=== PATIENT | female | born 1940 | race Two or more races ===

== ENCOUNTER 2024-07-16 13:00 | Outpatient (RCR) | payer OTHER, SELFPAY | END 2024-08-06 23:59 | disposition home or self-care (01) | LOC: SCTC 13:00 | PROVIDERS: PCP Internal Medicine Pulmonary Disease; Referring Provider Nurse Practitioner Family; Visit Provider Nurse Practitioner Family | DX: D69.6 Thrombocytopenia, unspecified (principal); K76.0 Fatty (change of) liver, not elsewhere classified; K64.9 Unspecified hemorrhoids; K59.00 Constipation, unspecified | CPT/HCPCS: 99213; G0463 ==

== ENCOUNTER → 2024-08-14 | Outpatient (CLI) | payer OTHER, SELFPAY ==
--- NOTE | 2024-08-14 14:30 | XR_ITS ---
Examination: CT abdomen with intravenous contrast CT pelvis with intravenous contrast 2-D coronal reconstructions 2-D sagittal reconstructions Date and time of exam:August 14, 2024 1441 hours Comparison February 12, 2023 INDICATIONS: Diagnosis thrombocytopenia unspecified, constipation 4 months. CTDI: vol (mGy) 8.19 DLP: (mGycm) 162 Technique: Multiple axial sections of the abdomen and pelvis have been obtained. 64 slice high-resolution scanner used. 3 mm axial sections have been obtained, post intravenous injection 60 cc [id number] 2-D sagittal, coronal reconstructions obtained. Low dose protocols were performed. One or more of the following dose reduction techniques were used; automated exposure control, adjustment of the mA and/or KV according to patient size, use of iterative reconstruction technique. Findings: Liver is irregular in contour with diffuse fatty infiltration Splenomegaly AP dimension 14 cm Absent gallbladder No pancreatic or mass 5 cm lateral left renal cyst Heavy abdominal aortic calcification no aneurysmal dilatation Minimal fluid distended small bowel loops No pericecal inflammatory change Colonic diverticulosis, no diverticulitis Atrophic uterus Urinary bladder intact Severe osteopenia with kyphoplasty T11 and T10 IMPRESSION: Cirrhosis Mild splenomegaly No abdominal or pelvic lymphadenopathy
== END | disposition home or self-care (01) ==
PROVIDERS: PCP Internal Medicine Pulmonary Disease; Referring Provider Nurse Practitioner Family; Visit Provider Nurse Practitioner Family
DX: K74.60 Unspecified cirrhosis of liver (principal); R16.1 Splenomegaly, not elsewhere classified
CPT/HCPCS: 74177; A4649; Q9967

== ENCOUNTER → 2024-08-19 | Outpatient (CLI) | payer OTHER, SELFPAY ==
--- NOTE | 2024-08-19 14:00 | XR_ITS ---
EXAMINATION: PET/CT FUSION SKULL TO THIGH EXAM DATE AND TIME: August 19, [address] abdomen pelvis August 14, 2024 INDICATIONS: Thrombocytopenia unspecified, staging prior to treatment CTDI:vol (mGy) 5.9 DLP: (mGycm) 541.9 PROCEDURE: 16 mCi FDG was administered intravenously To allow for distribution and uptake of radiotracer, the patient was allowed to rest quietly in a shielded room. Imaging was performed on an integrated 16-slice PET/CT scanner, with scanning from the skull base to the mid thigh. Serum blood glucose at the time of the injection was measured 91 mg/dL. CT scanning was performed without oral or intravenous contrast material. FINDINGS: Head and Neck: There is no pam hypermetabolism in the neck. The visualized portions of the brain are normal in appearance on CT. Chest: There is no pam hypermetabolism in the chest. There are no pulmonary nodules. Abdomen and Pelvis: There is no pam hypermetabolism in retroperitoneal or pelvic chains. The spleen is normal in size and FDG avidity. Musculoskeletal: Marrow uptake is within normal range. IMPRESSION: No chest, abdomen or pelvic lymphadenopathy
== END | disposition home or self-care (01) ==
PROVIDERS: PCP Internal Medicine Pulmonary Disease; Referring Provider Nurse Practitioner Family; Visit Provider Nurse Practitioner Family
DX: D69.6 Thrombocytopenia, unspecified (principal)
CPT/HCPCS: 78815; A9552

== ENCOUNTER 2024-08-25 12:59 | Outpatient (RCR) | payer OTHER, SELFPAY | END 2024-09-06 23:59 | disposition home or self-care (01) | LOC: SCTC 12:59 | PROVIDERS: PCP Internal Medicine Pulmonary Disease; Referring Provider Internal Medicine Pulmonary Disease; Visit Provider Nurse Practitioner Family | DX: D69.6 Thrombocytopenia, unspecified (principal); K74.60 Unspecified cirrhosis of liver; M81.0 Age-related osteoporosis without current pathological fracture; R63.4 Abnormal weight loss; Z68.27 Body mass index [BMI] 27.0-27.9, adult; Z79.83 Long term (current) use of bisphosphonates | CPT/HCPCS: 99212; G0463 ==

== ENCOUNTER 2024-10-08 11:29 | Outpatient (RCR) | payer OTHER, SELFPAY | END 2024-11-06 23:59 | disposition home or self-care (01) | LOC: SCTC 11:29 | PROVIDERS: PCP Internal Medicine Pulmonary Disease; Referring Provider Internal Medicine Pulmonary Disease; Visit Provider Nurse Practitioner Family | DX: D69.6 Thrombocytopenia, unspecified (principal); K74.60 Unspecified cirrhosis of liver; M81.0 Age-related osteoporosis without current pathological fracture; R16.1 Splenomegaly, not elsewhere classified; R63.4 Abnormal weight loss; Z68.28 Body mass index [BMI] 28.0-28.9, adult; I70.90 Unspecified atherosclerosis | CPT/HCPCS: 99212; G0463 ==

== ENCOUNTER → 2024-11-11 | Outpatient (CLI) | payer OTHER, SELFPAY ==
--- NOTE | 2024-11-11 10:30 | XR_ITS ---
Examination: Bone densitometry Date and time of exam:November 11, 2024 1045 hours INDICATIONS: Post menopausal, personal history osteoporosis, family history, sister osteoporosis Technique: Lumbar spine and hip total bone mineralization values of an calculated. Peak reference and age match control results have been displayed. Findings: Lumbar spine total bone mineralization is1.016 gm/cm2. This is 0.3 standard deviations below peak reference. This is 2.5 standard deviations above age-matched controls. Hip total bone mineralization is 0.808 gm/cm2 This is 1.1 standard deviations below peak reference. This is 1.0 standard deviations above age-matched controls Impression: There is normal mineralization based on lumbar spine measurements. There is osteoporosis based on hip measurements
== END | disposition home or self-care (01) ==
LOC: CDIM 10:21
PROVIDERS: Referring Provider Nurse Practitioner Family; Visit Provider Nurse Practitioner Family
DX: M81.0 Age-related osteoporosis without current pathological fracture (principal)
CPT/HCPCS: 77080

== ENCOUNTER 2025-01-12 13:08 | Outpatient (RCR) | payer OTHER, SELFPAY | END 2025-02-06 23:59 | disposition home or self-care (01) | LOC: SCTC 13:08 | PROVIDERS: PCP Internal Medicine Pulmonary Disease; Referring Provider Nurse Practitioner Family; Visit Provider Nurse Practitioner Family | DX: D69.6 Thrombocytopenia, unspecified (principal); K74.60 Unspecified cirrhosis of liver; M81.0 Age-related osteoporosis without current pathological fracture | CPT/HCPCS: 99212; G0463 ==